=== PATIENT | female | born 1970 | race Caucasian/White ===

== ENCOUNTER 2024-12-17 17:54 | Emergency (ER) | payer MEDICAID, SELFPAY ==
[2024-12-17 17:55] VITALS: BMI 36.0
[2024-12-17 18:05] VITALS: BP 167/106; PULSE 84; RESP 18; TEMP 37.3; O2SAT 98
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
[2024-12-17] MEDS: KETOROLAC INJ 60 MG/2 ML VIAL 30 MG IM (19:26)
[2024-12-17] MEDS: DIAZEPAM 5 MG TABLET PO (21:16)
[2024-12-17] MEDS: HYDROcodone/APAP 5/325 TABLET 1 TAB PO (21:17)
== END 2024-12-17 21:25 | disposition home or self-care (01) ==
PROVIDERS: Emergency Provider Emergency Medicine; PCP Family Medicine
DX: M25.511 Pain in right shoulder (principal); M62.838 Other muscle spasm; M54.2 Cervicalgia; V89.2XXA Person injured in unspecified motor-vehicle accident, traffic, initial encounter; Y92.410 Unspecified street and highway as the place of occurrence of the external cause
CPT/HCPCS: 72125; 73030; 96372; 99283; J1885; A9270